=== PATIENT | male | born 1975 | race Two or more races ===

== ENCOUNTER 2022-12-11 00:37 | Emergency (ER) | payer OTHER ==
[~2022-12-11] VITALS: Ht 165.1 cm; Wt 72.7 kg
[2022-12-11 03:28] VITALS: BP 129/83
[2022-12-11] MEDS ORDERED: TRIA1CAP87 PO (11:15)
[2022-12-11] MEDS ORDERED: LANO454C3 PO (11:15)
[2022-12-11] MEDS ORDERED: AMLO-258 PO (11:15)
[2022-12-11] MEDS ORDERED: CALC625T9 PO (11:15)
[2022-12-11] MEDS ORDERED: DIVA-112 PO (11:15)
[2022-12-11] MEDS ORDERED: HYDR50CA7 PO (11:16)
== END 2022-12-11 04:58 ==
LOC: EMS 00:38
DX: S00.83XA Contusion of other part of head, initial encounter (principal); I10 Essential (primary) hypertension; I51.9 Heart disease, unspecified; X58.XXXA Exposure to other specified factors, initial encounter; Y93.89 Activity, other specified; Y92.89 Other specified places as the place of occurrence of the external cause; Y99.8 Other external cause status
CPT/HCPCS: 70450; 99284